=== PATIENT | female | born 1980 | race Caucasian/White ===

== ENCOUNTER 2017-06-22 09:33 | Emergency (ER) | payer MEDICARE, OTHER ==
[~2017-06-22] VITALS: Ht 172.7 cm; Wt 104.5 kg
[2017-06-22 09:34] VITALS: BP 175/102; PULSE 114; RESP 20; TEMP 98.7; O2SAT 97
[2017-06-22] MEDS ORDERED: ZIPR40 PO (09:57)
[2017-06-22] MEDS ORDERED: LORA-392 PO (09:57)
[2017-06-22] MEDS ORDERED: ZIPRASIDONE MESYLATE 20 MG VIAL IM ONE (10:00)
[2017-06-22] MEDS ORDERED: LORazepam 2 MG/ML VIAL IM ONE (10:00)
--- NOTE | 2017-06-22 10:05 | PD ---
HPI . Bipolar disorder Chief Complaint: Psychiatric Symptoms Time Seen by Provider: 09:50 Travel History International Travel<30 days: No Contact w/Intl Traveler<30days: No Traveled to known affect area: No History of Present Illness HPI This patient presents stating that she needs a shot of Geodon. She states that she has bipolar disorder along with schizoaffective disorder and PTSD. She states that she had been maintained on Geodon and Ativan but recently moved to the area in December. She states that her primary care physician will prescribe her psychiatric medications and that she has been unable to get an appointment with a psychiatrist until this upcoming June 28. She is here with her father. They both state that her symptoms have been escalating for the last couple of weeks. She is currently in a depressive mode. She can't sleep. She is very agitated. She feels very anxious. No known modifiers with the exception of the fact that she cannot get her medication. Current symptoms are severe. PFSH Past Medical History Diabetes: Yes Patient Takes Glucophage: Yes Psychiatric: Yes (BIPOLAR, SCHIZO EFFECTIVE, DEPRESSION. ANXIETY, PTSD) Tetanus Vaccination: Unknown ?: Not Past Surgical History Hysterectomy: Yes Social History Alcohol Use: Yes (rarely) Tobacco Use: Yes (3 PPD) Substance Use: No Allergies-Medications (Allergen,Severity, Reaction): Coded Allergies: Penicillins (Verified Allergy, Severe, 06/22/17) Reported Meds & Prescriptions Reported Meds & Active Scripts Active Ativan (Lorazepam) 0.5 Mg Tab 0.5 Mg PO Q6H PRN Geodon (Ziprasidone) 40 Mg Cap 40 Mg PO BID Review of Systems Except as stated in HPI: all other systems reviewed are Neg Psychiatric: Positive: Anxiety, Depression, Mood Disorder, No: Suicidal Ideations, Substance Abuse Physical Exam Narrative GENERAL: Awake and alert. Initially very distressed over her current situation. SKIN: Warm and dry with no rash or lesions. HEAD: Normocephalic/atraumatic. EYES: Pupils are equal. Extraocular movements are intact. NECK: Full range of motion with no apparent pain. CARDIOVASCULAR: Regular rate and rhythm. RESPIRATORY: Nonlabored respirations. MUSCULOSKELETAL: Atraumatic. NEUROLOGICAL: Nonfocal. PSYCHIATRIC: Loud. Pressured speech. Tearful. Data Data Last Documented VS Vital Signs Date Time Temp Pulse Resp B/P (MAP) Pulse Ox O2 Delivery O2 Flow Rate FiO2 06/22/17 09:34 98.7 114 20 175/102 (126) 97 Room Air Orders Orders Ziprasidone Inj (Geodon Inj) (06/22/17 10:00) Lorazepam Inj (Ativan Inj) (06/22/17 10:00) Ed Discharge Order (06/22/17 09:59) MDM Medical Decision Making Medical Screen Exam Complete: Yes Emergency Medical Condition: Yes Differential Diagnosis Differential diagnosis of psychosis includes but is not limited to schizophrenia , schizoaffective disorder, bipolar disorder, intoxication, substance abuse, dementia Narrative Course This patient presents requesting a shot of Geodon. She reports a history of bipolar disorder, schizoaffective disorder and PTSD. She states that she has been previously treated with Geodon and Ativan. She has been out of these medications since December because of a move. She and her father reports escalating symptoms for the last couple of weeks. I have queried up-to-date. It recommends Geodon 40 mg twice a day for bipolar disorder. I have written her a prescription. I have also given her prescription for 10 Ativan 0.5 mg. This should get her through until she sees the psychiatrist next week. Diagnosis Primary Impression: Bipolar disorder with current episode depressed Qualified Codes: F31.4 - Bipolar disorder, current episode depressed, severe, without psychotic features Patient Instructions: General Instructions, Bipolar Disorder (ED) Departure Forms: Tests/Procedures Scripts Lorazepam (Ativan) 0.5 Mg Tab 0.5 MG PO Q6H Y for ANXIETY AND/OR AGITATION, #10 TAB 0 Refills Prov: Jenna Nichols MD 06/22/17 Ziprasidone (Geodon) 40 Mg Cap 40 MG PO BID, #60 CAP 0 Refills Prov: Jenna Nichols MD 06/22/17 Disposition: 01 DISCHARGE HOME Condition: Stable Jenna Nichols MD Jun 22, 2017 10:05
== END 2017-06-22 10:34 | disposition home or self-care (01) ==
LOC: NEPD 09:33
DX: F31.9 Bipolar disorder, unspecified (principal); F25.9 Schizoaffective disorder, unspecified; F43.10 Post-traumatic stress disorder, unspecified; E11.9 Type 2 diabetes mellitus without complications; F41.9 Anxiety disorder, unspecified; F17.200 Nicotine dependence, unspecified, uncomplicated; Z79.899 Other long term (current) drug therapy; Z88.0 Allergy status to penicillin
CPT/HCPCS: 96372; 99284; J2060; J3486